=== PATIENT | female | born 1955 | race Hispanic/Latino ===

== ENCOUNTER 2020-11-13 18:12 | Emergency (ER) | payer OTHER, SELFPAY ==
[2020-11-13] MEDS ORDERED: Ketamine 50 MG/ML (10ML VIAL) ONE (19:59)
[2020-11-13] MEDS ORDERED: Cyclobenzaprine 10 MG TAB ONE (20:05)
== END 2020-11-13 21:28 | disposition home or self-care (01) ==
LOC: ERS 18:12
DX: S52.571A Other intraarticular fracture of lower end of right radius, initial encounter for closed fracture (principal); S52.614A Nondisplaced fracture of right ulna styloid process, initial encounter for closed fracture; I10 Essential (primary) hypertension; V89.2XXA Person injured in unspecified motor-vehicle accident, traffic, initial encounter
CPT/HCPCS: 25605; 70450; 72125; 99152; 99153; G0390